=== PATIENT | female | born 1995 | race Caucasian/White ===

== ENCOUNTER 2019-09-26 12:21 | Inpatient (IN) | payer OTHER ==
[~2019-09-26] VITALS: Ht 160 cm; Wt 100.0 kg
[2019-09-26] MEDS ORDERED: SODIUM CHLORIDE FLUSH 10ML SYR IVF ONE (13:30)
[2019-09-26 14:17] LABS: ALBUMIN 4.1 g/dL (3.4-5.0); ANION GAP 7 mmol/L (5-15); CALCIUM 9.8 mg/dL (8.5-10.1); CHLORIDE 108 mmol/L (98-107); CREATININE 0.86 mg/dL (0.55-1.02)
[2019-09-26 14:20] LABS: BASOPHILS # (AUTO) 0.07 x10^3/uL (0-0.1); BASOPHILS % (AUTO) 1 % (0-1); EOSINOPHILS # (AUTO) 0.17 x10^3/uL (0-0.4); EOSINOPHILS % (AUTO) 2 % (1-7); LYMPHOCYTES % (AUTO) 31 % (22-44); MD NO; MEAN CORPUSCULAR HEMOGLOBIN 28.5 pg (27.0-34.8); MEAN CORPUSCULAR HGB CONC 33.2 g/dL (32.4-35.8); MEAN CORPUSCULAR VOLUME 86.1 fL (80-100); MONOCYTES # (AUTO) 0.61 x10^3/uL (0.2-0.8); MONOCYTES % (AUTO) 7 % (2-9); NEUTROPHILS # (AUTO) 5.13 x10^3/uL (1.8-6.8); NEUTROPHILS % (AUTO) 59 % (42-75); PLATELET COUNT 428 x10^3/uL (130-400); RED BLOOD COUNT 5.18 x10^6/uL (3.82-5.3); RED CELL DISTRIBUTION WIDTH 13.8 % (9.6-15.2)
--- NOTE | 2019-09-26 16:28 | NUR ---
CNC OPERATOR MACHINIST: PT IN MRI. MRI TO BRING PT TO ROOM 20 WHEN MRI IS COMPLETED
--- NOTE | 2019-09-26 16:51 | NUR ---
pt states she feels pressure behind her right eye. experiences pires sometimes that are only on the right side, but sometimes progress to a pires affecting the whole head. Addendum: 09/26/19 at 1827 by EYAL per pt both eyes are blurry constantly.
--- NOTE | 2019-09-26 16:52 | NUR ---
TO ROOM 20 FROM MRI. PHYSICIAN GENERAL INTERNAL MEDICINE STATES MULTIPLE ATTEMPTS MADE TO ESTABLISH IV FOR CONTRAST UNSUCCESSFULLY. RADIOLOGIST MADE AWARE AND MRI WITHOUT CONTRAST COMPLETED.
--- NOTE | 2019-09-26 17:02 | NUR ---
PT SITTING IN CHAIR, NO SIGNS OF DISTRESS, FAMILY IN ROOM.
--- NOTE | 2019-09-26 18:56 | NUR ---
AFTER CONSENT OBTAINED FOR LP, DR WEBSTER ATTEMPTED LP UNSUCCESSFUL. PT TO GO TO IR FOR LP.
--- NOTE | 2019-09-26 19:10 | NUR ---
Report from Padmini SINGH.
[2019-09-26] MEDS ORDERED: LIDOCAINE 1%, 20ML ONE (20:08)
--- NOTE | 2019-09-26 20:45 | NUR ---
Pt in IR.
[2019-09-26 21:29] LABS: GLUCOSE, CSF 53 mg/dL (40-80); TOTAL PROTEIN,CSF 28 mg/dL (15-45)
--- NOTE | 2019-09-26 21:36 | NUR ---
Pt c/o nausea and pires, updated ERP.
[2019-09-26] MEDS ORDERED: PROMETHAZINE 25 MG/ML, 1ML ONE (21:37)
[2019-09-26] MEDS ORDERED: PROMETHAZINE 25 MG/ML, 1ML IM ONE (22:00)
[2019-09-26] MEDS ORDERED: HYDROcodone/APAP 5/325 TABLET PO STA (22:05)
[2019-09-26] MEDS ORDERED: HYDROcodone/APAP 5/325 TABLET ONE (22:10)
[2019-09-26] MEDS ORDERED: prednisOLONE 15 MG/5 ML ORAL SOLN PO SCH (22:30)
[2019-09-26] MEDS ORDERED: SODIUM CHLORIDE 0.9% 1,000ML IVBOLUS ONE (22:30)
[2019-09-26] MEDS ORDERED: ENOXAPARIN 40 MG/0.4 ML SQ SCH (23:00)
[2019-09-26] MEDS ORDERED: TRAZODONE 50MG TABLET PO PRN (23:00)
[2019-09-26] MEDS ORDERED: HYDROcodone/APAP 5/325 TABLET PO PRN (23:00)
[2019-09-26] MEDS ORDERED: ONDANSETRON 2MG/ML, 2ML IVPush PRN (23:00)
[2019-09-26] MEDS ORDERED: KETOROLAC 30 MG/1 ML IV PRN (23:00)
[2019-09-26] MEDS ORDERED: morphine SULFATE 10 MG/ML, 1ML IVPush PRN (23:00)
--- NOTE | 2019-09-26 23:05 | NUR ---
Report given to Ricardo SINGH.
[2019-09-26] MEDS ORDERED: OMNIPAQUE 350 MG/ML, 100ML BOTTLE ONE (23:28)
[2019-09-27 00:34] LABS: FREE T4 (FREE THYROXINE) 0.93 ng/dL (0.76-1.46)
[2019-09-27 00:38] VITALS: BP 116/77
[2019-09-27 02:02] VITALS: BP 103/66
[2019-09-27 05:52] LABS: ALANINE AMINOTRANSFERASE 67 U/L (12-78); ALBUMIN 3.8 g/dL (3.4-5.0); ANION GAP 10 mmol/L (5-15); CALCIUM 9.2 mg/dL (8.5-10.1); CHLORIDE 110 mmol/L (98-107); CREATININE 1.05 mg/dL (0.55-1.02)
[2019-09-27 05:54] LABS: ALKALINE PHOSPHATASE 105 U/L (45-117); BILIRUBIN,TOTAL 0.7 mg/dL (0.2-1.0); TOTAL PROTEIN 7.8 g/dL (6.4-8.2)
[2019-09-27] MEDS ORDERED: SENNA/DOCUSATE TABLET PO SCH (09:00)
[2019-09-27] MEDS ORDERED: SODIUM CHLORIDE FLUSH 10ML SYR IVF SCH (09:00)
[2019-09-27 09:08] VITALS: BP 100/64
[2019-09-27] MEDS ORDERED: OMEP-110 PO (15:12)
[2019-09-27] MEDS ORDERED: PRED20TA PO (15:12)
[2019-09-27] MEDS ORDERED: ACET250T2 PO (15:12)
== END 2019-09-27 16:15 | disposition home or self-care (01) | DRG 103 ==
LOC: ED 23:20 → EDIP 23:35 → 3N 23:50 → DCLOUNGE 09-27 16:01
PROVIDERS: ADMIT Hospitalist; ATTEND Hospitalist
PROC: 009U3ZX Drainage of Spinal Canal, Percutaneous Approach, Diagnostic (ICD-10-PCS; principal; 2019-09-26)
PROC: B01B1ZZ Fluoroscopy of Spinal Cord using Low Osmolar Contrast (ICD-10-PCS; 2019-09-26)
DX: G93.2 Benign intracranial hypertension (principal); Z80.6 Family history of leukemia; Z88.8 Allergy status to other drugs, medicaments and biological substances; E05.90 Thyrotoxicosis, unspecified without thyrotoxic crisis or storm; D47.3 Essential (hemorrhagic) thrombocythemia
CPT/HCPCS: 36415; 62270; 89051; 96360; 96372; 99285; J3490; 62328; 70496; 70551; 80048; 80053; 82040; 82945; 83735; 84100; 84157; 84439; 84443; 84703; 85025; 87070; 87205; 93005; G0378; J1885; J2405; J2550; Q9967; J7030; J7510; J7512

== ENCOUNTER 2019-09-28 16:16 | Emergency (ER) | payer OTHER ==
[~2019-09-28] VITALS: Ht 160 cm; Wt 99.3 kg
[~2019-09-28 16:16] MED LIST: ACET250T2 PO; OMEP-110 PO; PRED20TA PO
--- NOTE | 2019-09-28 17:50 | NUR ---
Emeterio RN: Pt ambulated independently to ED room 34 from [facility] in [facility] accompanied by SO. Pt c/o GEORGE since recieving LP upon her recent admission for GEORGE. Pt dressed in gown, given warm blank, call light in reach.
--- NOTE | 2019-09-28 19:45 | NUR ---
PT TO RADIOLOGY AT THIS TIME
--- NOTE | 2019-09-28 20:14 | NUR ---
Pieter martins in ED - 09/28/19 at 2045 by BENITO PT RESTING IN [facility]. UNDER BLANKET HEATER. NO NEEDS AT THIS TIME. AWAITING ROOM FOR ADMIT
--- NOTE | 2019-09-28 20:29 | NUR ---
PT RETURNED FROM RADIOLOGY. RESTING IN [facility]. FAMILY BEDSIDE. NO NEEDS AT THIS TIME. PT IS UP FOR RECHECK
[2019-09-28 21:18] VITALS: BP 126/69
--- NOTE | 2019-09-28 21:19 | NUR ---
PT RESTING IN [facility]. FRIEND BEDSIDE. STATES THAT HER GEORGE IS SLIGHTLY BETTER BUT HER BACK STILL HURTS A LITTLE BIT. NOTIFIED.
[2019-09-28] MEDS ORDERED: HYDROcodone/APAP 10/325 MG TABLET PO ONE (21:30)
[2019-09-28] MEDS ORDERED: HYDROcodone/APAP 10/325 MG TABLET ONE (21:30)
== END 2019-09-28 21:44 | disposition home or self-care (01) ==
LOC: ED 20:43
DX: G97.1 Other reaction to spinal and lumbar puncture (principal); R11.0 Nausea; R42 Dizziness and giddiness; E05.90 Thyrotoxicosis, unspecified without thyrotoxic crisis or storm
CPT/HCPCS: 62273; 99285

== ENCOUNTER → 2019-12-09 | Outpatient (CLI) | payer OTHER ==
[~2019-12-09] MED LIST changes: +OMNIPAQUE 350 MG/ML, 150 ML BOTTLE ONE
== END | disposition home or self-care (01) ==
LOC: CFH 10:03
PROVIDERS: ATTEND Physician Assistant
DX: N28.1 Cyst of kidney, acquired (principal); N20.0 Calculus of kidney; N32.89 Other specified disorders of bladder
CPT/HCPCS: 74178; Q9967

== ENCOUNTER 2020-01-08 08:36 | Emergency (ER) | payer OTHER ==
[~2020-01-08] VITALS: Ht 160 cm; Wt 92.8 kg
[~2020-01-08 08:36] MED LIST changes: -OMNIPAQUE 350 MG/ML, 150 ML BOTTLE ONE
--- NOTE | 2020-01-08 09:00 | NUR ---
NAYELI WALTON PA AT BEDSIDE, PT ASSESSMENT POC DISCUSSED AND QUESTIONS ANSWERED. LLQ ABD PAIN RADIATES TO LEFT FLANK. HX: OF KIDNEY STONES. PT STATES SHE IS CURRENTLY BEING SEEN BY UROLOGIST, DR. SWAIN RE: HEMATURIA WHICH SHE HAS BEEN HAVING FOR "FEW MONTHS" PT DENIES PAINFUL URINATION OR INCREASED FREQUENCY. PT OOB AND AMBULATE TO BATHROOM.
[2020-01-08] MEDS ORDERED: HYDROmorphone 1 MG/ML, 1ML INJ ONE (09:23)
[2020-01-08] MEDS ORDERED: ONDANSETRON ODT 4 MG ONE (09:25)
[2020-01-08 09:29] LABS: MICROSCOPIC INDICATED
[2020-01-08] MEDS ORDERED: ONDANSETRON ODT 4 MG PO ONE (09:30)
[2020-01-08] MEDS ORDERED: HYDROmorphone 2 MG/ML, 1ML IM ONE (09:30)
[2020-01-08 09:55] LABS: BASOPHILS # (AUTO) 0.03 x10^3/uL (0-0.1); BASOPHILS % (AUTO) 1 % (0-1); EOSINOPHILS # (AUTO) 0.09 x10^3/uL (0-0.4); EOSINOPHILS % (AUTO) 2 % (1-7); LYMPHOCYTES # (AUTO) 1.53 x10^3/uL (1-3.4); LYMPHOCYTES % (AUTO) 29 % (22-44); MD NO; MEAN CORPUSCULAR HEMOGLOBIN 28.8 pg (27.0-34.8); MEAN CORPUSCULAR HGB CONC 33.1 g/dL (32.4-35.8); MEAN CORPUSCULAR VOLUME 87.2 fL (80-100); MEAN PLATELET VOLUME 8.1 fL (7.4-10.4); MONOCYTES # (AUTO) 0.53 x10^3/uL (0.2-0.8); MONOCYTES % (AUTO) 10 % (2-9); NEUTROPHILS # (AUTO) 3.05 x10^3/uL (1.8-6.8); NEUTROPHILS % (AUTO) 59 % (42-75); PLATELET COUNT 327 x10^3/uL (130-400); RED CELL DISTRIBUTION WIDTH 13.6 % (9.6-15.2)
[2020-01-08 10:07] LABS: ALANINE AMINOTRANSFERASE 101 U/L (12-78); ANION GAP 12 mmol/L (5-15); CALCIUM 8.8 mg/dL (8.5-10.1); CHLORIDE 110 mmol/L (98-107); CREATININE 0.77 mg/dL (0.55-1.02)
[2020-01-08 10:09] LABS: ALKALINE PHOSPHATASE 76 U/L (45-117); BILIRUBIN,TOTAL 0.8 mg/dL (0.2-1.0); TOTAL PROTEIN 7.4 g/dL (6.4-8.2)
--- NOTE | 2020-01-08 11:13 | NUR ---
PT INFORMED OF PLAN FOR CT. SBAR RPT TO SAMANTHA VELEZ
[2020-01-08 11:15] VITALS: BP 102/66
--- NOTE | 2020-01-08 11:16 | NUR ---
RECEIVED REPORT FROM REBECA SINGH. ASSUMING CARE AT THIS TIME.
--- NOTE | 2020-01-08 11:43 | NUR ---
ALL RESULTS ARE BACK AT THIS TIME. CHART UP FOR RECHECK.
== END 2020-01-08 12:45 | disposition home or self-care (01) ==
LOC: ED 09:15
DX: N20.0 Calculus of kidney (principal); N39.0 Urinary tract infection, site not specified
CPT/HCPCS: 36415; 74176; 80053; 81001; 84703; 85025; 87086; 96372; 99284; J1170; Q0162

== ENCOUNTER 2020-01-10 08:11 | Emergency (ER) | payer OTHER ==
[~2020-01-10] VITALS: Ht 172.7 cm; Wt 100.0 kg
--- NOTE | 2020-01-10 08:18 | NUR ---
BIB [facility] FOR C/O DRIVING THIS AM AND PULLED OVER FOR C/O L SIDED FLANK PAIN RADIATING TO BACK 05/12. PT WAS SEEN HERE 2 DAYS AGO AND DX W/ KIDNEY STONE. GIVEN 100 FENTANYL AND 4 ZOFRAN AND 125 ML NS EDUCATION PROFESSOR. BS EDUCATION PROFESSOR BP 130/80, HR 100, 100% RA, BS 96. MONITORS APPLIED. PT RESTING ON GURNEY. VSS. PAOLA WILSON AT BEDSIDE.
[2020-01-10] MEDS ORDERED: KETOROLAC 30 MG/1 ML ONE (08:25)
[2020-01-10] MEDS ORDERED: ONDANSETRON 2MG/ML, 2ML ONE ×2 (08:25→09:39)
[2020-01-10] MEDS ORDERED: ONDANSETRON 2MG/ML, 2ML IVPush ONE ×2 (08:30→10:00)
[2020-01-10] MEDS ORDERED: KETOROLAC 30 MG/1 ML IVPush ONE (08:30)
[2020-01-10] MEDS ORDERED: SODIUM CHLORIDE 0.9% 1,000ML IV ONE (08:30)
--- NOTE | 2020-01-10 08:41 | NUR ---
PT MEDICATED PER MAR.
[2020-01-10 08:59] LABS: BASOPHILS # (AUTO) 0.04 x10^3/uL (0-0.1); BASOPHILS % (AUTO) 1 % (0-1); EOSINOPHILS # (AUTO) 0.12 x10^3/uL (0-0.4); EOSINOPHILS % (AUTO) 2 % (1-7); LYMPHOCYTES # (AUTO) 2.09 x10^3/uL (1-3.4); LYMPHOCYTES % (AUTO) 30 % (22-44); MD NO; MEAN CORPUSCULAR HEMOGLOBIN 28.5 pg (27.0-34.8); MEAN CORPUSCULAR HGB CONC 32.6 g/dL (32.4-35.8); MEAN CORPUSCULAR VOLUME 87.4 fL (80-100); MEAN PLATELET VOLUME 8.3 fL (7.4-10.4); MONOCYTES # (AUTO) 0.51 x10^3/uL (0.2-0.8); MONOCYTES % (AUTO) 7 % (2-9); NEUTROPHILS # (AUTO) 4.11 x10^3/uL (1.8-6.8); NEUTROPHILS % (AUTO) 60 % (42-75); PLATELET COUNT 317 x10^3/uL (130-400); RED BLOOD COUNT 4.86 x10^6/uL (3.82-5.3); RED CELL DISTRIBUTION WIDTH 13.7 % (9.6-15.2)
[2020-01-10 09:03] LABS: ALBUMIN 3.6 g/dL (3.4-5.0); ANION GAP 10 mmol/L (5-15); CALCIUM 8.9 mg/dL (8.5-10.1); CHLORIDE 109 mmol/L (98-107); CREATININE 0.95 mg/dL (0.55-1.02)
--- NOTE | 2020-01-10 09:05 | NUR ---
PT STATES PAIN IMPROVED AFTER TORADOL FROM 05/12 TO 08/12.
--- NOTE | 2020-01-10 09:09 | NUR ---
ASSISTED PATIENT TO AMBULATE TO THE BR. URINE COLLECTED AND SENT TO LAB.
[2020-01-10] MEDS ORDERED: MORPHINE SULFATE 4 MG/ML, 1ML ONE (09:39)
[2020-01-10 09:41] LABS: MICROSCOPIC INDICATED
--- NOTE | 2020-01-10 09:44 | NUR ---
PT RESTING ON GURNEY. VSS. PT STATES INREASED PAIN 02/09. PAOLA WILSON NOTIFIED. PT MEDICATED PER OCT.
[2020-01-10] MEDS ORDERED: MORPHINE SULFATE 4 MG/ML, 1ML IVPush PRN (10:00)
--- NOTE | 2020-01-10 10:26 | NUR ---
PT STATES SHE CURRENTLY HAS NO PAIN 0/10. PT RESTING ON GURNEY. MATHIS.
[2020-01-10 10:42] VITALS: BP 128/82
== END 2020-01-10 10:51 | disposition home or self-care (01) ==
LOC: ED 09:18
DX: N20.2 Calculus of kidney with calculus of ureter (principal); N30.00 Acute cystitis without hematuria; E05.90 Thyrotoxicosis, unspecified without thyrotoxic crisis or storm; R10.9 Unspecified abdominal pain; R11.0 Nausea
CPT/HCPCS: 36415; 80048; 81001; 82040; 84703; 85025; 87086; 96374; 96375; 96376; 99284; J1885; J2270; J2405; J7030

== ENCOUNTER 2020-01-23 13:38 | Observation (INO) | payer OTHER ==
[~2020-01-23] VITALS: Ht 160 cm; Wt 97.0 kg
[2020-01-23 14:22] VITALS: BP 126/81
[2020-01-23] MEDS ORDERED: CHLORHEXIDINE 15 ML UDC MM ONE (14:30)
[2020-01-23] MEDS ORDERED: MIDAZOLAM 1 MG/ML, 2ML ONE (14:32)
[2020-01-23] MEDS ORDERED: FENTANYL PF 250 MCG/5ML ONE (14:32)
[2020-01-23] MEDS ORDERED: NEOSTIGMINE 1 MG/ML, 10ML ONE (14:34)
[2020-01-23] MEDS ORDERED: KETOROLAC 30 MG/1 ML ONE ×2 (14:34)
[2020-01-23] MEDS ORDERED: GLYCOPYRROLATE 0.2MG/1ML, 5ML ONE (14:34)
[2020-01-23] MEDS ORDERED: CEFAZOLIN 1,000 MG ONE (14:34)
[2020-01-23] MEDS ORDERED: DEXAMETHASONE 4 MG/ML, 1ML ONE (14:34)
[2020-01-23] MEDS ORDERED: ONDANSETRON 2MG/ML, 2ML ONE (14:34)
[2020-01-23] MEDS ORDERED: vitamin d PO (14:34)
[2020-01-23] MEDS ORDERED: PHENERMINE (14:34)
[2020-01-23] MEDS ORDERED: PROPOFOL 10 MG/ML, 20ML ONE (14:34)
[2020-01-23] MEDS ORDERED: ROCURONIUM 10MG/ML,5ML ONE (14:34)
[2020-01-23 14:57] LABS: HCG UR SG 1.021 (1.003-1.030); MICROSCOPIC INDICATED
[2020-01-23] MEDS: LACTATED RINGERS 1,000 ML IV SCH ×2 (15:04→21:54)
[2020-01-23] MEDS ORDERED: LABETALOL 5MG/ML, 20ML IV PRN (16:30)
[2020-01-23] MEDS ORDERED: PROMETHAZINE 25 MG/ML, 1ML IVPush PRN (16:30)
[2020-01-23] MEDS ORDERED: MEPERIDINE/PF 25MG/0.5ML IVPush PRN (16:30)
[2020-01-23] MEDS ORDERED: hydrALAzine 20 MG/ML, 1ML IV PRN (16:30)
[2020-01-23] MEDS ORDERED: HYDROmorphone 1 MG/ML, 1ML INJ IVPush PRN (16:30)
[2020-01-23] MEDS ORDERED: morphine SULFATE 10 MG/ML, 1ML IVPush PRN (16:30)
[2020-01-23] MEDS ORDERED: HALOPERIDOL 5 MG/ML IV PRN (16:30)
[2020-01-23] MEDS ORDERED: OXYcodone 5 MG/5 ML ORAL.SOL UDC PO PRN (16:30)
[2020-01-23] MEDS ORDERED: FENTANYL PF 100 MCG/2ML IV PRN (16:30)
[2020-01-23] MEDS ORDERED: ACETAMINOPHEN 325 MG TABLET PO PRN (16:30)
[2020-01-23] MEDS ORDERED: FENTANYL PF 100 MCG/2ML ONE ×2 (16:39→17:39)
[2020-01-23] MEDS ORDERED: ACETAMINOPHEN 650 MG/20.3 ML UDC ONE (17:39)
[2020-01-23] MEDS ORDERED: ACETAMINOPHEN 325 MG TABLET ONE (17:40)
[2020-01-23] MEDS ORDERED: OXYcodone IR 5MG TABLET ONE (18:58)
[2020-01-23] MEDS ORDERED: OXYcodone/APAP 5/325MG TABLET PO PRN ×2 (19:00→20:00)
[2020-01-23] MEDS ORDERED: ONDANSETRON 2MG/ML, 2ML IVPush PRN (19:00)
[2020-01-23] MEDS ORDERED: MORPHINE SULFATE 4 MG/ML, 1ML ONE (20:09)
[2020-01-23] MEDS ORDERED: KETOROLAC 30 MG/1 ML IVPush ONE (20:30)
[2020-01-23] MEDS: morphine SULFATE 10 MG/ML, 1ML IVPush ONE (20:30)
[2020-01-23] MEDS ORDERED: TEMAZEPAM 30 MG CAPSULE PO PRN (21:30)
[2020-01-23] MEDS ORDERED: MORPHINE SULFATE 4 MG/ML, 1ML IVPush PRN (21:30)
[2020-01-23] MEDS: KETOROLAC 30 MG/1 ML IVPush SCH (21:36)
[2020-01-23 23:46] VITALS: BP 109/73
[2020-01-24 04:02] VITALS: BP 99/65
[2020-01-24] MEDS: KETOROLAC 30 MG/1 ML IVPush SCH ×2 (04:21→10:00)
[2020-01-24] MEDS: HYDROcodone/APAP 5/325 TABLET PO PRN ×2 (05:53→10:00)
[2020-01-24 06:55] VITALS: BP 103/67
[2020-01-24] MEDS ORDERED: SULF1TAB24 PO (11:21)
[2020-01-24 12:38] VITALS: BP 101/65
[2020-01-24] MEDS ORDERED: HYDR-3240 PO (13:46)
[2020-01-24 13:57] VITALS: BP 115/75
== END 2020-01-24 14:05 | disposition home or self-care (01) ==
LOC: OR 13:38 → 4NE 18:02 → OR 21:11 → 4NE 21:12
PROVIDERS: ADMIT Urology; ATTEND Urology
DX: Z03.818 Encounter for observation for suspected exposure to other biological agents ruled out (principal); N20.2 Calculus of kidney with calculus of ureter; R31.29 Other microscopic hematuria; G89.18 Other acute postprocedural pain; Z87.442 Personal history of urinary calculi; Z87.440 Personal history of urinary (tract) infections
CPT/HCPCS: 36415; 52356; 74018; 76000; 81001; 81025; 87086; 87635; 96374; 96375; 96376; C1758; C1769; C2617; G0378; J0690; J1100; J1885; J2250; J2270; J2405; J2704; J2710; J3010; J7120